=== PATIENT | male | born 1985 | race Hispanic/Latino ===

== ENCOUNTER 2021-08-01 16:42 | Emergency (ER) | payer OTHER ==
[~2021-08-01] VITALS: Ht 175.3 cm; Wt 84.0 kg
[2021-08-01] MEDS ORDERED: KEFLEX500 MG PO (20:14)
[2021-08-01 20:22] VITALS: BP 134/77
== END 2021-08-01 20:40 | disposition home or self-care (01) | DRG 605 ==
LOC: ED 16:42
DX: S61.311A Laceration without foreign body of left index finger with damage to nail, initial encounter (principal); W31.9XXA Contact with unspecified machinery, initial encounter; Y92.89 Other specified places as the place of occurrence of the external cause; Y99.0 Civilian activity done for income or pay